=== PATIENT | female | born 1960 | race Caucasian/White ===

== ENCOUNTER 2020-06-02 18:48 | Emergency (ER) | payer MEDICARE, MEDICAID, SELFPAY ==
[2020-06-02 18:56] VITALS: BP 146/70; PULSE 90; RESP 18; TEMP 37.4; O2SAT 97; BMI 32.5
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
== END 2020-06-02 20:28 | disposition home or self-care (01) ==
PROVIDERS: Emergency Provider Physician Assistant; PCP Family Medicine
DX: S13.4XXA Sprain of ligaments of cervical spine, initial encounter (principal); V43.52XA Car driver injured in collision with other type car in traffic accident, initial encounter
CPT/HCPCS: 12345; 72040; 99281; 99282